=== PATIENT | female | born 1955 | race Caucasian/White ===

== ENCOUNTER → 2019-06-20 17:02 | Outpatient (CLI) | payer OTHER, SELFPAY ==
[2019-06-20 17:18] LABS: Bacteria Urine None Seen; RBC Urine None Seen (0-5/HPF)
[2019-06-20 17:37] LABS: Add Manual Diff / Slide Review NO; Basophils Absolute Auto 100 /uL (0-100); Basophils Percent Auto 1.4 % (0-2); Eosinophils Absolute Auto 300 /uL (0-450); Eosinophils Percent Auto 4.4 % (2-4); Hematocrit 43.3 % (36-46); Hemoglobin 14.8 g/dL (12.0-16.0); Lymphocytes Absolute Auto 1600 /uL (1100-4500); Lymphocytes Percent Auto 27.1 % (25-40); Mean Corpuscular HGB Conc 34.2 % (30-36); Mean Corpuscular Hemoglobin 31.5 PG (26-34); Mean Corpuscular Volume 92.2 fL (80-100); Monocytes Absolute Auto 500 /uL (0-900); Monocytes Percent Auto 8.2 % (3-14); Neutrophils Absolute Auto 3400 /uL (1500-7000); Neutrophils Percent Auto 58.9 % (50-75); Platelet Count 111 X10^3/uL (150-400); Red Cell Distribution Width 13.4 % (11.6-14.8); White Blood Cell Count 5.8 X10^3/uL (4.5-11.0)
[2019-06-20 18:10] LABS: Appearance Urine UA CLEAR; Bilirubin Urine UA NEGATIVE (NEGATIVE); Color Urine UA YELLOW; Glucose Urine UA NEGATIVE (Negative); Ketones Urine UA NEGATIVE (NEGATIVE); Leukocyte Esterase Urine UA 2+ (NEGATIVE); Nitrite Urine UA NEGATIVE (Negative); Occult Blood Urine UA NEGATIVE (Negative); Protein Urine UA NEGATIVE (Negative); Specific Gravity Urine UA 1.015 (1.000-1.035); Urobilinogen Urine UA 0.2 E.U./dL (0.2)
[2019-06-20 18:19] LABS: WBC Urine 5-10/HPF (0-5/HPF)
[2019-06-20 18:20] LABS: Calcium Oxalate Crystals Urine Few; Culture Indicated Urine Specimen Cultured; Squamous Epithelial Cell Urine 0-1 /HPF (0-5/HPF)
[2019-06-20 18:22] LABS: BUN Creatinine Ratio 26.7 (6-22); Blood Urea Nitrogen 16 mg/dL (7-17); Calcium 9.9 mg/dL (8.4-10.2); Carbon Dioxide 29 mmol/L (22-32); Chloride 102 mmol/L (98-107); Estimated Glomerular Filt Rate > 60.0 mL/min (>60); Glucose 96 mg/dL (80-110); HEMOLYSIS < 15 (0-50); Potassium 4.7 mmol/L (3.4-5.1); Sodium 140 mmol/L (137-145)
[2019-06-20 18:24] LABS: Hemoglobin A1C% w Est Avg Glu 5.6 % (4.0-6.0)
== END ==
PROVIDERS: PCP Family Medicine Geriatric Medicine; Visit Provider Orthopaedic Surgery
DX: Z01.818 Encounter for other preprocedural examination (principal); Z01.812 Encounter for preprocedural laboratory examination; N39.9 Disorder of urinary system, unspecified; Z13.1 Encounter for screening for diabetes mellitus; R73.9 Hyperglycemia, unspecified
CPT/HCPCS: 36415; 80048; 81001; 83036; 85025; 87077; 87086; 87147; 93005; 93010

== ENCOUNTER 2019-07-29 10:06 | Inpatient (IN) | payer OTHER, SELFPAY ==
[2019-07-24 12:00] VITALS: BMI 27.1
[2019-07-29] VITALS (14 sets, daily range): BP systolic 116–130; BP diastolic 61–90; PULSE 55–98; RESP 8–20; TEMP 35.7–36.8; O2SAT 92–100; BMI 26.6
--- NOTE | 2019-07-29 | DI.RAD.S_ITS ---
PROCEDURE: [id number] W PEL IF PERFORMED INDICATIONS: INTRA OPERATIVE LEFT HIP TECHNIQUE: AP pelvis with lateral view(s) of the left hip(s). COMPARISON: Pelvis and left hip radiographs 06/20/2019. FINDINGS: Intraoperative images demonstrate expected position of the left total hip arthroplasty. No obvious fracture. IMPRESSION: Expected position of the left total hip arthroplasty. Dictated by: Valentin Wellington M.D. on 07/29/2019 at 18:14 Approved by: Valentin Wellington M.D. on 07/29/2019 at 18:16
--- NOTE | 2019-07-29 06:00 | DI.RAD.S_ITS ---
PROCEDURE: XR HIP W PEL IF DONE LT 2V INDICATIONS: TOTAL LEFT HIP TECHNIQUE: AP pelvis and lateral view of the left hip acquired. COMPARISON: Pelvic radiographs 01/24/2019. FINDINGS: Bones: Patient is status post left total hip arthroplasty, with hardware components in expected positions. The hip joint appears congruent. The visualized bony structures appear intact. Marked right hip joint space narrowing. Soft tissues: Overlying postoperative changes are noted. No suspicious soft tissue densities. IMPRESSION: Satisfactory appearance of the left hip arthroplasty. Dictated by: Valentin Wellington M.D. on 07/29/2019 at 16:40 Approved by: Valentin Wellington M.D. on 07/29/2019 at 16:42
[2019-07-29] MEDS: PREGABALIN 75 MG CAPSULE PO (11:08)
[2019-07-29] MEDS: CELECOXIB 200 MG CAPSULE PO (11:08)
[2019-07-29] MEDS: ACETAMINOPHEN 325 MG TABLET 975 MG PO ×2 (11:08→21:33)
[2019-07-29] MEDS: LACTATED RINGERS 1,000 ML 42 ML IV ×3 (11:08→16:32)
[2019-07-29] MEDS: VANCOMYCIN 1,000 MG/200 ML PIGGYBACK 200 MG IV (11:09)
--- NOTE | 2019-07-29 11:28 | PM.PREOP ---
Pre-operative Note Interval Note History & Physical reviewed/Exam performed by Physician: Yes Changes to H&P: No
--- NOTE | 2019-07-29 11:28 | PM.OP.1 ---
Operative Date/Time/Diagnoses Date of procedure: 07/29/19 Time of procedure: 12:28 Pre-op diagnosis: left hip OA Post-op diagnosis: same Procedure & Clinicians Procedure: Left total hip arthroplasty Same procedure as scheduled: Yes Indications: The patient has had progressively worsening left hip pain with radiographic changes consistent with arthritis. Non-operative management has failed and the patient has requested total hip replacement. The risks, benefits and alternatives to surgery were discussed with the patient prior to proceeding. Risks discussed included, but were not limited to, failure to relieve pain, leg length discrepancy, dislocation, stiffness, infection, nerve damage, deep venous thrombosis, pulmonary embolism, stroke, coma, heart attack, permanent paralysis and , as well as the potential need for eventual revision of the prosthetic. Surgeon: Yvrose Márquez Friction Paint Machine Tender: Rafael Nguyễn Anesthesia Type: General and Spinal Operative Notes Findings: Severe left hip osteoarthritis, good bone, adequate stability Closure Type: primary Specimen(s): none sent Prosthetic devices, grafts, tissues, transplants, or devices: Márquez [employer] Nephew R3 52 cup, 1 single screw, neutral 36 poly liner, size 3 anthology standard offset stem, minus 3 x 36 mm Oxinium head Estimated Blood Loss (mL): 250 Blood products transfused: none Procedure in detail: The patient was brought to the operating room. Patient was carefully positioned in the supine position. Time-out was performed and antibiotics were given. Anesthesia was induced. She was positioned in the on the table in order to allow hyperextension of the hip. The left lower extremity was prepped and draped in a standard sterile fashion. An anterior left hip incision was made 1 fingerbreadth lateral to the anterior superior iliac spine and extended distally towards the greater trochanter. Dissection was carried out through skin and subcutaneous tissues. The skin and subcutaneous tissues were carefully injected with Lidocaine with epi. Superficial hemostasis was achieved. The fascia over the tensor fascia zita was defined and incised with a knife. Two Allis clamps were used to grasp the fascia. Tensor fascia zita was retracted laterally. A gelpi retractor was placed. Dissection was carried out down along the neck. The circumflex vessels were carefully identified and cauterized with the Aqua Mantis. There was good visualization of the femoral neck. A Cobra was placed superior to the neck and the gluteus fibers were carefully stripped from that superior aspect of the capsule. A 2nd retractor was placed along the inferior aspect of the neck. The rectus insertion along the capsule was partially released. A 3rd retractor that was then gently placed over the rim of the acetabulum under the rectus. Capsule was carefully incised and released from the intertrochanteric line circumferentially superior to the mid sagittal line and inferiorly to the mid sagittal line until the lesser trochanter was palpable. A tag stitch was placed both in the superior and inferior limb of the capsular insertion. Along the acetabulum capsule was also released up to the mid sagittal 12:00 position. A portion of the labrum was resected. A saw was used to perform an osteotomy at the level of the intertrochanteric line and the junction of the superior femoral neck leaving approximately 1 finger breath of residual inferior neck above the lesser trochanter. A 2nd cut was made along the femoral neck at the base of the head and a napkin ring of neck was removed. Corkscrew was placed in the femoral head and the head was removed without difficulty. Retractors were then repositioned around the acetabulum. Residual labrum was resected and additional osteophytes were removed. A reamer that was 4 mm below the templated size was placed by hand in the acetabulum and it was reamed to centralize the acetabulum. It was then reamed up to 2 under the templated size and fluoroscopy was brought in to confirm the position of the reaming and depth of reaming. I reamed 1 under the anticipated size. A trial cup was placed and noted that it was appropriately sized and fluoroscopy confirmed position and depth. The component was open and inserted without difficulty fluoroscopic imaging was used to confirm that the cup had been adequately seated and was well positioned. A single screw was placed to further stabilize the cup. Neutral poly trial liner was placed. The cup was tested and noted to be stable. Attention was then directed to the femur. The femur was gently hyperextended additional capsular release was performed as needed in order to allow adequate visualization of the proximal femur with elevation of the femur. Patient was placed in a hyperextended slightly adducted position with maximum external rotation. Box osteotome was used to check for any residual neck as well as sclerotic bone along the trochanter. Owings pepper was placed in the femur. Additional broaching was performed. Canal finder was used to determine the alignment of the canal and position. Size 1 broach was placed. The canal was then appropriately broached up to the templated size as long as there was adequate stability of the broach and serial advancement of the broach without excessive impingement. Specific attention was directed at avoiding varus attempting to direct the distal aspect of the broach more anteriorly and avoiding excessive anteversion. Trial reduction showed acceptable range of motion, good stability, no posterior impingement, jehovah's witness of leg length and appropriate lateral shuck. I also hyperflexed the hip and checked that there was no impingement anteriorly and there was good stability with flexion, adduction and internal rotation. Marcaine and Exparel were injected.. The stem was placed without difficulty. Repeat trial reduction and x-ray showed acceptable overall position, length, and no evidence of the femoral fracture. Final head was placed. Wound was meticulously irrigated with normal saline. The hip was reduced and additional Exparel and Marcaine were injected. The capsule was closed with interrupted nonabsorbable sutures. The fascia of the tensor was closed with interrupted and running Vicryl. No drain was placed. Any tensor fascia zita muscle that appeared to be contused or injured which was a minimal amount was carefully resected. Capsule around the tensor was injected with Exparel and Marcaine. The skin was closed with barbed stitches for the subcutaneous tissue and skin. We also used surgical glue. The wound was dressed sterilely. Brief Betadine soak was also used and was meticulously irrigated with normal saline. Patient was transferred to recovery room in satisfactory condition. Complications: none Post-operative Condition: stable Disposition: Acute Care Plan for aftercare: The patient will be maintained on a standard total hip replacement protocol with weight bearing as tolerated and anterior hip precautions. The patient will receive Aspirin and sequential compression devices for DVT prophylaxis. The patient will be discharged home when safe for the home environment.
--- NOTE | 2019-07-29 11:29 | PM.PREOP ---
Pre-operative Note Interval Note History & Physical reviewed/Exam performed by Physician: Yes Changes to H&P: No
[2019-07-29] MEDS: CEFAZOLIN 1 GM VIAL IV (12:20)
--- NOTE | 2019-07-29 12:58 | SUR.OPER ---
Head on donut. Supine on fracture table with bilateral legs secured in traction. Right arm secured to armboard with padding. Left arm across chest, secured with sheet, padding and tape.
[2019-07-29] MEDS: TRANEXAMIC ACID 1,000 MG VIAL 1000 MG INJ ×2 (13:02→15:19)
[2019-07-29] MEDS: BUPIVACAINE 0.25% W/ EPI 30 ML VIAL 60 ML INJ (13:03)
[2019-07-29] MEDS: BUPIVACAINE LIPOSOME 266 MG/20 ML VIAL INJ (13:03)
--- NOTE | 2019-07-29 16:15 | SUR.PHASEI ---
Addendum entered by Magui Melotn R.N. 07/29/19 16:32: Pt too drowsy to cooperate to determine spinal level. Original Note: To PACU, began arousing shortly after arrival. Speech was unintelligible. 1615 Dr. Muse here, talking to the patient, she is very drowsy, but appropriate.
--- NOTE | 2019-07-29 16:25 | SUR.PHASEI ---
x-ray done and viewed by Dr. Márquez. Ice chips and sips of water given. Report called to GUERO Brown
--- NOTE | 2019-07-29 16:33 | SUR.PHASEI ---
Sleeping since the x-ray was taken/sips of water. VSS, resp even and regular, skin warm and dry. Clothing bag and striped cloth bag to room with patient (on her bed).
--- NOTE | 2019-07-29 16:49 | SUR.PHASEI ---
1639 to room 212, bed down and locked, call light within reach, clothing into closet, SCDs on. RA sat 88%, put on O2 at 2LNP. Drowsy, responds easily/appropriate. No questions from pt or staff. Stable.
[2019-07-29] MEDS: LACTATED RINGERS 1,000 ML 125 ML IV (18:14)
[2019-07-29] MEDS: ASPIRIN EC 81 MG TABLET PO (21:33)
[2019-07-29] MEDS: CEFAZOLIN 2 GM/100 ML FROZ.PIGGY IV (21:33)
[2019-07-29] MEDS: DOCUSATE 100 MG CAPSULE PO (21:33)
[2019-07-29] MEDS: ONDANSETRON 4 MG/2 ML INJ IV (21:43)
[2019-07-29] MEDS: diphenhydrAMINE 50 MG/ML VIAL 25 MG IV (21:43)
[2019-07-29] MEDS: ZOLPIDEM 5 MG TABLET 10 MG PO (23:26)
[2019-07-30] MEDS: LACTATED RINGERS 1,000 ML 125 ML IV (00:43)
--- NOTE | 2019-07-30 01:11 | PC.NURSE ---
233 Pt is experiencing an increased ammt. of itching. Bendadrly given at 2129. Pt stated that it only gave about 2hrs of relief. Dr. Mena television presenter for Dr. Márquez. Called at 2344, Dr. Mena gave orders for 25mg of vistaril Q6.
[2019-07-30] MEDS: CEFAZOLIN 2 GM/100 ML FROZ.PIGGY IV (03:48)
[2019-07-30] MEDS: hydrOXYzine pamoate 25 MG CAPSULE PO (04:03)
[2019-07-30] MEDS: TRAMADOL 50 MG TABLET PO ×2 (04:06→09:32)
[2019-07-30 04:07] VITALS: BP 129/71; PULSE 94; RESP 19; TEMP 36.8; O2SAT 95
[2019-07-30] MEDS: diphenhydrAMINE 25 MG TABLET PO (05:39)
[2019-07-30 06:37] LABS: Hematocrit 35.1 % (36-46)
[2019-07-30 07:55] VITALS: BP 114/64; PULSE 97; RESP 16; TEMP 36.9; O2SAT 96
--- NOTE | 2019-07-30 08:34 | PM.PN.1 ---
Subjective Subjective Date Patient Seen: 07/30/19 Time Patient Seen: 08:34 Interval history: Patient is POD#1 s/p left anterior ANISHA with Dr. Márquez. She is complaining of significant itch which was only partially relieved with Benadryl and Vistaril. One episode of emesis yesterday but no nausea today. Pain is well controlled. Has not mobilized with PT yet, but feels she moved well to transfer to bedside commode. Denies chest pain, shortness of breath. Exam Vital Signs (past 8 hours): - 07/30/19 04:07 Temperature 98.3 F Pulse Rate 94 H Respiratory Rate 19 Blood Pressure 129/71 Pulse Oximetry 95 Oxygen Delivery Method Room Air Oxygen Flow Rate 0 Narrative Exam Narrative: Pleasant 64 year old female resting comfortably in bed. Alert and oriented in no acute distress. Aquacel dressing in place is CDI. Patient able to flex/extend the foot and ankle. Sensation intact to light touch. Palpable pedal pulse with soft, compressible calves. Objective Labs Result Diagrams: 07/30/19 06:20 Labs: Laboratory Results - last 24 hr 07/30/19 06:20 Hgb 12.0 Hct 35.1 L Assessment & Plan Assessment & Plan narrative: Patient doing well postoperatively. She should mobilize with PT later today. Continue Benadryl/Vistaril PRN for itch. [place] concerns about discharge today. Possible discharge to home later today pending PT eval. Quality VTE Deep Vein Thrombosis/Pulmonary Embolism Present on Admission: No
[2019-07-30] MEDS: CITALOPRAM 20 MG TABLET PO (09:24)
[2019-07-30] MEDS: ASPIRIN EC 81 MG TABLET PO (09:24)
[2019-07-30] MEDS: ACETAMINOPHEN 325 MG TABLET 975 MG PO (09:24)
[2019-07-30] MEDS: DOCUSATE 100 MG CAPSULE PO (09:24)
[2019-07-30 11:00] VITALS: BP 120/60; PULSE 95; RESP 17; TEMP 37.1; O2SAT 96
--- NOTE | 2019-07-30 11:23 | PT.IIE ---
Current Diagnoses Unilateral primary osteoarthritis, left hip (07/29/19) Surgery Performed Operation Date: 07/29/19 12:15 Actual Procedures p Total Hip Arthroplasty/Anterior Approach(Left) - Yvrose Márquez MD Surgical History (Last Updated 07/24/19 @ 12:30 by Irina Gaspar RN) Hx of bilateral cataract extraction (Acute) Hx of cervical discectomy (Acute ~05/2016) Hx of cervical spine surgery (Acute 09/18/17) S/P bilateral foot surgery (Acute) Medical History (Last Updated 07/24/19 @ 12:30 by Irina Gaspar RN) Anxiety (Acute) Fibromyalgia (Acute) Former smoker (Acute) Macular hole, right eye (Acute) Physical Therapy Inpatient Evaluation/Re-Eval M1 PT/OT-IP Prior Functional Status Start: 07/30/19 08:14 Freq: NEEDED Status: Active Protocol: Document 07/30/19 09:13 (Rec: 07/30/19 10:19 [email or web address]) Medical Review Prior Functional Status Medical History Reviewed Yes Diet/Fluid Consistency Regular Communication No noted communication or cognitive deficits. Pt able to make needs known. Mobility and Gait Pt reports prior I with mobility and gait. Some limitation in amount of ambulation tolerated d/t L hip pain. Activities of Daily Living and IADL's Pt reports I with ADLs prior to surgery. Assist with some IADLs such as cleaning the house and large grocery shopping trips d/t L hip pain. Prior Functional Level (Other details) Pt was able to drive prior to surgery. Pt also completed 2 weeks of preop PT prior to surgery. Social History Household Members significant other Living Arrangements House Number of Floors (Floors) Two Floors Number of Stairs To Enter/Railing? No SARY Home Environment High Toilet,Walk in Shower Home Equipment Front Wheel Walker,Straight Cane,Raised Toilet Seat Without Armrests,Shower Seat with Backrest,Grab Bars Near Toilet,Grab Bars In Shower Employment Status Retired Additional Social History Comment Pt lives at home on [address] with her significant other and their small dog (dog is staying with a friend while pt recovers). Pt's home is [address], but she only lives on first floor as top floor is a rented out suite. Pt has no SARY but does have 2 stairs down into sunken living /dining room with B railings ( stairs are too wide to reach both railings at once). Pt's bathroom has grab bars in the shower and by the toilet (L side), and pt has a built in tile bench in the shower as well as a shower seat with a backrest. Pt has a high bed that is not adjustable. Pt has a FWW and a SPC, which she brought to the hospital with her and were previously fitted at her preop PT appointments on [facility]. M2 PT-IP Current Condition Start: 07/30/19 08:14 Freq: NEEDED Status: Active Protocol: Document 07/30/19 09:13 (Rec: 07/30/19 10:19 [email or web address]) Physical Therapy Current Condition Current Condition Evaluation Date 07/30/19 Treatment Diagnosis L ANISHA, difficulty walking, impaired mobility Onset Date 07/29/19 Precautions Anterior Hip Precautions No Hip Extension,No Hip External Rotation Weight Bearing Status Weight Bearing Status Weight Bear as Tolerated M3 PT-IP Subjective Start: 07/30/19 08:14 Freq: NEEDED Status: Active Protocol: Document 07/30/19 09:13 (Rec: 07/30/19 10:19 [email or web address]) Subjective Physical Therapy Visit Type Type Initial Evaluation Visit Start Time 09:13 Visit Stop Time 09:47 Total Visit Minutes 44 Notes IE led by OLLIE Masters Number of ACTING SECTION CHIEF Visits 0 Physical Therapy Visit Comments Patient Comments I am actually feeling pretty good and would like to get up and move. I am a little nervous about what will happen with pain meds wear off and I am still itchy. Patient Goals Return home Therapy Pain Assessment Pain When Pain Assessed During Mobility Pain Present Pain Present Pain Reported Location L hip Intensity 2 Description Acute,Sharp,With Movement Pain Behaviors Wincing Pain Management Techniques Distraction,Timing of Activity with Medications M4 PT-IP Mobility and Gait Start: 07/30/19 08:14 Freq: NEEDED Status: Active Protocol: Document 07/30/19 09:13 (Rec: 07/30/19 10:19 [email or web address]) PT-Bed Mobility Assessment Rolling Type of Rolling Roll to Right Level of Assist Standby Assistance Supine to Sit Supine to Sit Standby Assistance Scooting Scooting to Edge of Bed Standby Assistance PT-Transfer Assessment Sit to and From Stand Sit to and from Stand Standby Assistance,Contact Guard Assistance Equipment Transfer Assistive Device Gait Belt,Front Wheeled Walker Orthotic/Prosthetic Devices or Brace: No Transfers Transfer Destination Chair Transfer Technique Stand Step Pivot Transfer Ability Level of Assist Standby Assistance Comments Mobility Comments Pt in bed with HOB elevated upon evaluation. Resting vitals BP 125/72, O2 98%, HR 85. Pt able to roll to R and sit up with initial grab bar assist to roll and use of R LE to assist in moving L LE to EOB. Pt required SBA for sit to stand and CGA for stand to sit with cuing for stagger stance d/t L hip pain. Pt left in chair with call light in reach. Gait Assessment Gait Gait Assistance Required: Standby Assistance,Contact Guard Assist Distance (Feet) 150 Able to Maintain Weight Bearing Status Yes During Gait Assistive Devices Assistive Device Gait Belt,Front Wheeled Walker Orthotic/Prosthetic Devices or Brace: No Gait Deviations General Gait Pattern Antalgic,Decreased Stride Length,Flexed Trunk Factors Limiting Gait Function Factors Limiting Gait Function Decreased Activity Tolerance, Decreased Strength,Limited Range of Motion,Pain Comments Gait Comments Pt able to walk ~150 ft with CGA>>SBA and use of FWW. Pt demonstrated slightly antalgic gait pattern with mild decrease in stride length. Gait pattern 80-90% WNL, improving with cuing to WB through walker. Stair Climbing Assessment Evaluation Level of Assist On Stairs Contact Guard Assistance,1 Person Assistance Devices Stair Climbing Assistive Devices Left Railing,Right Railing Technique/Endurance Stair Climbing Direction Ascend and Descend Stair Climbing Technique Step to Step Number of Steps Climbed 3 Query Text: Stair Climbing Set # Repetitions (reps) 2 Comments Stair Climbing Comments Pt instructed in up with the good, down with the bad step to pattern for stair climbing. Pt able to ascend stairs with CGA for safety and R railing support. Required CGA as well as railing and handhold support from PT or caregiver to descend stairs. Improved control and less assistance required with use of railing on L when descending compared to R. Instructed caregiver on how to assist pt with stairs at home and completed second round of stairs with caregiver assist. Pt demonstrated good safety awareness. PT-Balance Assessment Sitting Balance and Reactions Static Sitting Balance Ability Good Dynamic Sitting Balance Ability Good Standing Balance and Reactions Static Standing Balance Ability Good Dynamic Standing Balance Ability Good M5 PT-IP Objective Assessments Start: 07/30/19 08:14 Freq: NEEDED Status: Active Protocol: Document 07/30/19 09:13 (Rec: 07/30/19 10:19 [email or web address]) Orientation Orientation/Cognition Level of Alertness Alert Orientation Name,Age,Birthday,Month,Date, Year,Day of Week,Place, Situation Language Function Ability No Deficits Noted Safety Awareness Understands Safety Issues Memory Description No Deficits Noted Comments No noted cognitive or communication deficits. Pt demonstrates good safety awareness throughout session. Gross Range of Motion Upper Extremity ROM Assessment Within Functional Limits Lower Extremity ROM Assessment Left Impaired Strength Upper Extremity Strength Assessment Within Functional Limits Lower Extremity Strength Assessment Left Impaired M6 PT-IP Treatment Start: 07/30/19 08:14 Freq: NEEDED Status: Active Protocol: Document 07/30/19 09:13 (Rec: 07/30/19 10:19 [email or web address]) Physical Therapy Treatment Education Education Provided Precautions,Weight Bearing Status,Post-Op Packet,Safety Other Treatments Other Treatment Performed Gait using FWW for support. Educated pt on stair climbing and instructed caregiver on how to assist pt. M7 PT-IP Assessment and Plan Start: 07/30/19 08:14 Freq: NEEDED Status: Active Protocol: Document 07/30/19 09:13 (Rec: 07/30/19 10:19 [email or web address]) PT Summary Assessment and Plan Potential Rehabilitation Potential Excellent Status of Condition at Evaluation Stable Summary Impairments Pain,ROM,Strength,Bed Mobility ,Transfers,Gait,Activity Tolerance Progress Towards Goals Safe For Discharge Assessment Summary Pt is 64 yo female 1 day s/p L ANISHA with anterior precautions . Pt reports I PLOF for ADLs and mobility with some assist from significant other for IADLs. Pt required no more than CGA for all mobility and ambulation. Required SAMPLE WORKER for stair climbing but demonstrated good safety awareness and control of movement. Pt has good social support system from significant other at home, and significant other able to assist pt with stair climbing. Pt already has OP PT set up on [facility]. PT recommends d/c to home with assist and OP PT. Frequency of Treatment Frequency Of Treatment Discharge Recommendations To Nursing Amount of Assist Needed Standby Assistance Discharge Recommendations PT Discharge Recommendations Home with Assistance, Outpatient PT
--- NOTE | 2019-07-30 15:03 | CM.DANOTE ---
Discharge Home Patient is a 64 year old female who was admitted on 07/29/19 for Left ANISHA. Pt has [employer] for insurance and her PCP is Dr. Francine Hicks. EMR was reviewed. Per MD, pt is medically stable to d/c home today with no identified barriers to discharge. Per PT, recommending safe d/c home with assist and pt already has outpt PT set up. Pt resides on [address] with her significant other who can provide assist at d/c and pt preference is to d/c home today with outpt PT and does not anticipate any SW needs at this time. Plan: Patient to d/c home today via [employer] Other POV and outpt PT set up already in Sunday. No SW needs at this time. ELROY Centeno
== END 2019-07-30 13:43 | disposition home or self-care (01) | DRG 470 ==
PROVIDERS: Admitting Provider Orthopaedic Surgery; PCP Family Medicine Geriatric Medicine; Visit Provider Orthopaedic Surgery
PROC: 0SRB02Z Replacement of Left Hip Joint with Metal on Polyethylene Synthetic Substitute, Open Approach (ICD-10-PCS; CPT 27130; principal; 2019-07-29 12:15)
DX: M16.12 Unilateral primary osteoarthritis, left hip (principal); M79.7 Fibromyalgia; F32.9 Major depressive disorder, single episode, unspecified; Z87.891 Personal history of nicotine dependence; L29.9 Pruritus, unspecified
CPT/HCPCS: 36415; 73502; 73503; 76000; 85014; 85018; 97116; 97161; 97530; C1776; C9290; J0690; J1100; J1200; J2250; J2274; J2405; J2704; J3010

== ENCOUNTER 2019-09-16 20:33 | Emergency (ER) | payer OTHER, SELFPAY ==
[2019-07-29 18:02] VITALS: BMI 26.6
--- NOTE | 2019-09-16 20:36 | DI.US.S_ITS ---
PROCEDURE: US PERIPH VENOUS LOW EXTREM LT INDICATIONS: LEFT CALF PAIN TECHNIQUE: Real-time imaging, as well as color and pulse Doppler interrogation, were performed of the lower extremity deep veins from the inguinal ligament to the popliteal fossa. COMPARISON: None. FINDINGS: The left common femoral, superficial femoral, and popliteal veins are normally compressible and free of intraluminal thrombus. Color and pulse Doppler demonstrate normal phasic intraluminal flow. There is normal augmentation response to distal compression maneuver. IMPRESSION: No ultrasound evidence of deep venous thrombosis of the left lower extremity. Dictated by: Fausto Kohler M.D. on 09/16/2019 at 21:30 Approved by: Fausto Kohler M.D. on 09/16/2019 at 21:32
[2019-09-16 20:44] VITALS: BP 122/75; PULSE 82; RESP 16; TEMP 36.4; O2SAT 98
--- NOTE | 2019-09-16 20:57 | ED.EXTPRO ---
HPI - Extremity Problem General Chief complaint: Extremity Problem,Nontraumatic Stated complaint: hip replacement, R/O Blood Clot Time Seen by Provider: 09/16/19 20:36 Source: patient Mode of arrival: Ambulatory Limitations: no limitations History of Present Illness HPI Narrative: 64-year-old female who underwent a left-sided total hip arthroplasty 7 weeks ago. Has been in her normal state health until a few days ago when she started having pain and tingling and numbness and swelling to her left lower extremity. She called the orthopedic doctor on-call who told her that it was most likely a sciatic issue. Patient was started on prednisone. Today went to her primary provider. A D-dimer was ordered and was slightly elevated. Patient denies any chest pain or shortness of breath. The facility where she was previously was unable to obtain an ultrasound as she was sent to this emergency department for this. Related Data Home Medications Medication Instructions Recorded Confirmed citalopram [Celexa] 20 mg PO QAM #0 06/19/16 07/29/19 zolpidem [Ambien] 10 mg PO HS #0 06/19/16 07/29/19 alprazolam 0.5 mg PO DAILY PRN 07/24/19 07/29/19 Previous Rx's Medication Instructions Recorded acetaminophen 975 mg PO TID #40 tab 07/30/19 aspirin 81 mg PO BID #40 tab 07/30/19 docusate sodium [DOK] 100 mg PO BID #40 cap 07/30/19 hydroxyzine pamoate 25 mg PO Q6HR PRN #40 cap 07/30/19 tramadol 50 mg PO TID PRN #40 tab 07/30/19 Allergies Allergy/AdvReac Type Severity Reaction Status Date / Time oxycodone [From PERCOCET] AdvReac Intermediate NAUSEA, Verified 07/29/19 10:45 VOMITING Review of Systems Constitutional Constitutional: Denies fever(s) and Denies headache(s) ENT Ears, Nose, Mouth, and Throat: Denies headache(s) and Denies disequilibrium Cardiovascular Cardiovascular: Denies chest pain and Denies dyspnea Respiratory Respiratory: Denies cough and Denies dyspnea Gastrointestinal Gastrointestinal: Denies abdominal pain, Denies nausea and Denies vomiting Musculoskeletal Musculoskeletal: Reports tingling Comments: Left lower extremity pain swelling and tingling Integumentary/Breasts Skin/Breast: Denies lesions and Denies rash Neurologic Neurologic: Denies behavioral changes, Denies headache(s), Reports tingling, Reports paresthesias and Denies disequilibrium Psychiatric Psychiatric: Denies behavioral changes Hematologic/Lymphatic Hematologic/Lymphatic: Denies easy bleeding and Denies easy bruising Patient History Medical History Anxiety (Acute) Fibromyalgia (Acute) Former smoker (Acute) Macular hole, right eye (Acute) Surgical History (Updated 07/24/19 @ 12:30 by Irina Gaspar RN) Hx of bilateral cataract extraction (Acute) Hx of cervical discectomy (Acute ~05/2016) Hx of cervical spine surgery (Acute 09/18/17) S/P bilateral foot surgery (Acute) Social History household members: significant other Smoking Status: Former smoker alcohol intake: current Smoking Status: Former smoker Substance Use Type: does not use Exam Initial Vital Signs Initial Vital Signs: Vital Signs Temperature 97.5 F L 09/16/19 20:44 Pulse Rate 82 09/16/19 20:44 Respiratory Rate 16 09/16/19 20:44 Blood Pressure 122/75 09/16/19 20:44 Pulse Oximetry 98 09/16/19 20:44 Const General: cooperative, comfortable and well developed Orientation: alert, awake and oriented x3 HENMT Head: normal to inspection and normocephalic Resp Effort & Inspection: normal respiratory effort Cardio Rate: regular rate Pulses: dorsalis pedis present on the left Skin Lesions: no lesions Rashes: no rashes Other: Well-healing surgical scar left anterior thigh consistent with stated history of total hip Extrem General: normal to inspection, capillary refill normal, No cyanosis and No edema Psych Appearance: grossly normal and well kempt Course Orders Ordered: ED Orders 09/16/19 20:36 US periph venous low extrem lt Stat Vital Signs Vital signs: Vital Signs - 8 hr 09/16/19 20:44 09/16/19 21:56 Temperature 97.5 F L Pulse Rate 82 80 Respiratory Rate 16 16 Blood Pressure 122/75 128/84 Pulse Oximetry 98 96 MDM - Extremity (Nontraumatic) Imaging Data US - DVT: Radiologist's Impression: [address] [address] Ultrasound Report Signed Patient: Elyse Sauceda [facility]#: [id number] : 5Acct:[id number] Age/Sex: 64 / FDate of Service: 09/16/19 Loc: ED Accession Number: [id number] Procedure: US periph venous low extrem lt Ordering Provider: Bhupendra Wells D.O. PROCEDURE: PERIPH VENOUS LOW EXTREM LT INDICATIONS: LEFT CALF PAIN TECHNIQUE: Real-time imaging, as well as color and pulse Doppler interrogation, were performed of the lower extremity deep veins from the inguinal ligament to the popliteal fossa. COMPARISON: None. FINDINGS: The left common femoral, superficial femoral, and popliteal veins are normally compressible and free of intraluminal thrombus. Color and pulse Doppler demonstrate normal phasic intraluminal flow. There is normal augmentation response to distal compression maneuver. IMPRESSION: No ultrasound evidence of deep venous thrombosis of the left lower extremity. Dictated by: Fausto Kohler M.D. on 09/16/2019 at 21:30 Approved by: Fausto Kohler M.D. on 09/16/2019 at 21:32 [facility] Narrative Medical decision making narrative: Patient has a relatively benign exam. I see very little if any swelling left lower extremity. The ultrasound shows no signs of a DVT. She is currently on prednisone for sciatic issues. Informed her that she should continue this medication. Will hold on further workup for now. No indication for antibiotics. Patient was given return precautions and follow-up instructions. She expressed understanding and agreement with plan. Discharge Plan Departure Patient Disposition: Home Clinical Impression: Post-operative pain Discharge Date/Time: 09/16/19 21:56 Activity Restrictions/Additional Instructions: Recommend that you continue all of the postoperative instructions given to you by the orthopedic surgeon. I would continue the prednisone as directed. If her symptoms worsen or you develop any new her symptoms please return to the emergency department for further evaluation. Prescriptions: No Action zolpidem [Ambien] 10 MG tablet 10 mg PO HS Qty: 0 RF: 0 citalopram [Celexa] 20 MG tablet 20 mg PO QAM Qty: 0 RF: 0 alprazolam 0.5 mg Tablet 0.5 mg PO DAILY PRN (Reason: Panic Attack(S)) RF: 0 acetaminophen 325 mg Tablet 975 mg PO TID Qty: 40 RF: 0 aspirin 81 mg Tablet,Delayed Release (Dr/Ec) 81 mg PO BID Qty: 40 RF: 0 tramadol 50 mg Tablet 50 mg PO TID PRN (Reason: Pain, Moderate (4-6)) Qty: 40 RF: 0 docusate sodium [DOK] 100 mg Capsule 100 mg PO BID Qty: 40 RF: 0 hydroxyzine pamoate 25 mg Capsule 25 mg PO Q6HR PRN (Reason: Nausea) Qty: 40 RF: 0 Referrals: Malcolm Hicks MD [Primary Care Provider] -
[2019-09-16 21:56] VITALS: BP 128/84; PULSE 80; RESP 16; O2SAT 96
== END 2019-09-16 21:56 | disposition home or self-care (01) ==
PROVIDERS: Emergency Provider Emergency Medicine; PCP Family Medicine Geriatric Medicine
DX: G89.18 Other acute postprocedural pain (principal); M79.661 Pain in right lower leg
CPT/HCPCS: 93971; 99282; 99284